=== PATIENT | female | born 1960 | race Two or more races ===

== ENCOUNTER 2023-05-04 13:08 | Emergency (ER) | payer BC, OTHER ==
[~2023-05-04] VITALS: Ht 154.9 cm; Wt 67.0 kg
[2023-05-04 15:50] LABS: Basophils # (auto) 0 10 ^3/uL (0-0.2); Basophils % (auto) 0.5 % (0.0-2.0); Eosinophils # (auto) 0.1 10 ^3/uL (0-0.8); Lymphocytes # (auto) 1.5 10 ^3/uL (0.4-5.4); Monocytes # (auto) 0.7 10 ^3/uL (0-1.3); Neutrophils # (auto) 4.7 10 ^3/uL (1.6-8.6); Red Cell Distribution Width 13.2 % (11.8-14.3)
[2023-05-04 15:51] LABS: Hematocrit 44.5 % (36.0-46.0); Lymphocytes % (auto) 21.1 % (10.0-50.0); Mean Corpuscular Hemoglobin 34.1 pg (28.0-32.0); Mean Corpuscular Hgb Conc. 33.7 g/dL (32.0-36.0); Mean Corpuscular Volume 101.2 fL (80.0-100.0); Monocytes % (auto) 10.5 % (0.0-12.0); Neutrophils % (auto) 66.9 % (37.0-80.0)
[2023-05-04 16:07] LABS: Calcium 8.9 mg/dL (8.5-10.1); Potassium 4.3 mmol/L (3.5-5.1)
[2023-05-04 16:07] LABS: Urine WBC None Seen /hpf (0 - 5)
[2023-05-04 16:10] LABS: BUN/Creatinine Ratio 12.1 (10.0-20.0); Bilirubin, Total 0.4 mg/dL (0.2-1.0); Total Protein 6.9 g/dL (6.4-8.2)
[2023-05-04 16:24] LABS: Urine Bacteria NONE SEEN /hpf (None Seen); Urine Blood Negative /uL (Negative); Urine Specific Gravity 1.004 (1.001-1.035)
[2023-05-04] MEDS ORDERED: PROCHLORPERAZINE EDISYLATE 5 MG/ML 2ML VIAL IM ONE (17:15)
[2023-05-04] MEDS ORDERED: MECL1TAB42 PO (18:41)
[2023-05-04 19:40] VITALS: BP 140/74
== END 2023-05-04 19:53 | disposition home or self-care (01) ==
LOC: ER 13:08
DX: H81.13 Benign paroxysmal vertigo, bilateral (principal); Z88.1 Allergy status to other antibiotic agents
CPT/HCPCS: 36415; 70450; 80053; 81001; 84484; 85025; 93005; 96372; 99285; J0780